=== PATIENT | female | born 2000 ===

== ENCOUNTER 2021-06-17 14:02 | Outpatient (CLI) | payer OTHER | END 2021-06-17 14:35 | disposition home or self-care (01) | LOC: PRENATAL 14:02 | PROVIDERS: ATTEND Obstetrics & Gynecology Maternal & Fetal Medicine | DX: O26.843 Uterine size-date discrepancy, third trimester (principal); O36.8131 Decreased fetal movements, third trimester, fetus 1; Z36.89 Encounter for other specified antenatal screening; Z3A.38 38 weeks gestation of pregnancy ==

== ENCOUNTER 2021-06-19 07:50 | Inpatient (IN) | payer OTHER ==
[~2021-06-19] VITALS: Ht 157.5 cm; Wt 88.9 kg
[2021-06-19] MEDS ORDERED: PRENATAL CAPLE1 EAC1 PO (09:35)
== END 2021-06-21 14:55 | disposition home or self-care (01) | DRG 807 ==
LOC: OB/GYN 07:50 → LDR 07:50 → OB/GYN 06-20 00:21
PROVIDERS: ADMIT Obstetrics & Gynecology; ATTEND Obstetrics & Gynecology
PROC: 10E0XZZ Delivery of Products of Conception, External Approach (ICD-10-PCS; principal; 2021-06-19)
PROC: 10907ZC Drainage of Amniotic Fluid, Therapeutic from Products of Conception, Via Natural or Artificial Opening (ICD-10-PCS; 2021-06-19)
PROC: 3E033VJ Introduction of Other Hormone into Peripheral Vein, Percutaneous Approach (ICD-10-PCS; 2021-06-19)
PROC: 4A1HXFZ Monitoring of Products of Conception, Cardiac Rhythm, External Approach (ICD-10-PCS; 2021-06-19)
DX: O99.824 Streptococcus B carrier state complicating childbirth (principal); Z37.0 Single live birth; O26.893 Other specified pregnancy related conditions, third trimester; Z67.41 Type O blood, Rh negative; Z3A.39 39 weeks gestation of pregnancy